=== PATIENT | female | born 1975 | race Caucasian/White ===

== ENCOUNTER 2017-02-27 06:35 | Inpatient (IN) | payer BC ==
[2017-02-27] VITALS (353 sets, daily range): BP systolic 94–111; BP diastolic 44–69; PULSE 112–124; TEMP 99.6–100.2; O2SAT 55–100
[~2017-02-27] VITALS: Ht 157.5 cm; Wt 105.9 kg
[~2017-02-27 06:35] MED LIST: ATIVAN 0.50.5 MG/TAB PO; CELEXA 20MG20 MG/TAB PO; CLEOCIN HC150 MG/CAP PO; FARXIGA5 PO; FORT1000TA PO; NORCO 325 MG-51 TAB PO; PRILOSEC 20MG20 MG PO; PRINZIDE 12.5 M1 TAB PO; ZYRTEC 10MG10 MG PO
[2017-02-27] MEDS ORDERED: PROTONIX 40MG T40 MG PO (06:58)
[2017-02-27] MEDS ORDERED: WOMEN'S DAILY1 TAB PO (06:59)
[2017-02-27] MEDS ORDERED: KLONOPIN 1MG1 MG PO (06:59)
[2017-02-27] MEDS ORDERED: EFFEXOR XR75 MG/CAP PO (06:59)
[2017-02-27 08:19] LABS: MEAN CELL VOLUME 85 fl (80.0-100.0); MEAN CORPUSCULAR HGB CONC 32 g/dl (33.0-37.0); MEAN PLATELET VOLUME 10.8 fl (7.4-10.4); PLATELET COUNT 383 K/mm3 (130-400); RED BLOOD COUNT 3.86 M/mm3 (4.10-5.30); REDCELL DISTRIBUTION WIDTH-CV 14.7 % (11.5-14.5)
[2017-02-27 08:29] LABS: ADD PATHOLOGY DIFF REVIEW NO; HEMATOCRIT 32.7 % (37.0-47.0); HEMOGLOBIN 10.6 g/dl (12.5-16.0); MEAN CORPUSCULAR HEMOGLOBIN 27 pg (27.0-31.0)
[2017-02-27 08:47] LABS: ADJUSTED CALCIUM 8.2 mg/dL (8.4-10.2); ALBUMIN 3.4 gm/dL (3.5-5.0); BILIRUBIN,TOTAL 0.7 mg/dL (0.0-1.0); CALCIUM 7.7 mg/dL (8.4-10.2); CREATININE, serum 2.09 mg/dL (0.52-1.25); POTASSIUM 3.6 mmol/L (3.4-5.0); TOTAL PROTEIN 6.5 gm/dL (6.4-8.2)
[2017-02-27 08:50] LABS: PH 5 (5-8); URINE APPEARANCE Cloudy; URINE BACTERIA Rare /hpf; URINE BILIRUBIN Negative (NEGATIVE); URINE BLOOD Negative (NEGATIVE); URINE COLOR Amber; URINE GLUCOSE Negative (NEGATIVE); URINE KETONE Trace (NEGATIVE); URINE UROBILINOGEN Negative (NEGATIVE)
[2017-02-27 08:57] LABS: INFLUENZA B NEGATIVE
[2017-02-27 10:14] LABS: ANISOCYTOSIS 1+; BAND 41 % (0-10); NEUTROPHILS 55 % (42.0-75.2); PLATELET ESTIMATE NORMAL (NORMAL); TOTAL CELLS COUNTED 100
[2017-02-27] MEDS ORDERED: TRULICITY1.5 MG/0.5 SQ (15:45)
[2017-02-28] VITALS (696 sets, daily range): BP systolic 92–103; BP diastolic 54–75; PULSE 92–108; TEMP 98.8–100.1; O2SAT 57–100
[2017-02-28 05:30] LABS: MEAN CELL VOLUME 83 fl (80.0-100.0); MEAN CORPUSCULAR HGB CONC 32 g/dl (33.0-37.0); MEAN PLATELET VOLUME 10.6 fl (7.4-10.4); PLATELET COUNT 367 K/mm3 (130-400); RED BLOOD COUNT 3.53 M/mm3 (4.10-5.30); REDCELL DISTRIBUTION WIDTH-CV 15.1 % (11.5-14.5)
[2017-02-28 05:35] LABS: HEMATOCRIT 29.3 % (37.0-47.0); HEMOGLOBIN 9.4 g/dl (12.5-16.0); MEAN CORPUSCULAR HEMOGLOBIN 27 pg (27.0-31.0); WHITE BLOOD COUNT 27.6 K/mm3 (4.8-10.8)
[2017-02-28 05:36] LABS: ADD PATHOLOGY DIFF REVIEW NO
[2017-02-28 05:43] LABS: CALCIUM 6.7 mg/dL (8.4-10.2); CREATININE, serum 1.93 mg/dL (0.52-1.25); POTASSIUM 3.5 mmol/L (3.4-5.0)
[2017-02-28 05:52] LABS: BAND 19 % (0-10); MYELOCYTE 1 % (0-0); NEUTROPHILS 66 % (42.0-75.2); PLATELET ESTIMATE NORMAL (NORMAL); TOTAL CELLS COUNTED 100
[2017-03-01 00:40] VITALS: BP 90/56; PULSE 101; TEMP 98.8
[2017-03-01 03:29] VITALS: BP 117/64; PULSE 98; TEMP 98.8
[2017-03-01 08:40] VITALS: BP 123/79; PULSE 98; TEMP 98.4
[2017-03-01 12:01] VITALS: BP 137/77; PULSE 88; TEMP 98.6
[2017-03-01 12:05] LABS: CALCIUM 7.5 mg/dL (8.4-10.2); CREATININE, serum 0.79 mg/dL (0.52-1.25); POTASSIUM 3.2 mmol/L (3.4-5.0)
[2017-03-01 12:13] LABS: MEAN CELL VOLUME 82 fl (80.0-100.0); MEAN CORPUSCULAR HGB CONC 33 g/dl (33.0-37.0); MEAN PLATELET VOLUME 10.5 fl (7.4-10.4); PLATELET COUNT 370 K/mm3 (130-400); RED BLOOD COUNT 3.27 M/mm3 (4.10-5.30); REDCELL DISTRIBUTION WIDTH-CV 15.3 % (11.5-14.5); WHITE BLOOD COUNT 16.2 K/mm3 (4.8-10.8)
[2017-03-01 12:15] LABS: HEMATOCRIT 26.9 % (37.0-47.0); HEMOGLOBIN 8.8 g/dl (12.5-16.0); MEAN CORPUSCULAR HEMOGLOBIN 27 pg (27.0-31.0)
[2017-03-01] MEDS ORDERED: CEFTIN500 MG PO (14:54)
[2017-03-01] MEDS ORDERED: ZOFRAN8 MG PO (21:25)
[2017-03-01] MEDS ORDERED: ULTRAM 50MG TAB50 MG PO (21:25)
== END 2017-03-01 15:50 | disposition home or self-care (01) | DRG 193 ==
LOC: COL.ER 06:35 → IMCU 08:14 → MEDICAL 02-28 22:32
PROVIDERS: Emergency Medicine; Internal Medicine Cardiovascular Disease
PROC: 02HV33Z Insertion of Infusion Device into Superior Vena Cava, Percutaneous Approach (ICD-10-PCS; principal; 2017-02-27)
DX: J13 Pneumonia due to Streptococcus pneumoniae (principal); J96.01 Acute respiratory failure with hypoxia; R04.2 Hemoptysis; Z68.41 Body mass index [BMI] 40.0-44.9, adult; N17.9 Acute kidney failure, unspecified; I10 Essential (primary) hypertension; Z79.4 Long term (current) use of insulin; E66.9 Obesity, unspecified; Z87.891 Personal history of nicotine dependence; D64.9 Anemia, unspecified; E11.65 Type 2 diabetes mellitus with hyperglycemia
CPT/HCPCS: 99222-AI; 99223-AI; 99232-AI; 99233-AI; A4315; C1751; J0692; J1644; J3370; J7030; J7050

== ENCOUNTER 2017-03-01 18:42 | Emergency (ER) | payer BC ==
[~2017-03-01] VITALS: Ht 157.5 cm; Wt 99.1 kg
[~2017-03-01 18:42] MED LIST changes: +CEFTIN500 MG PO; +EFFEXOR XR75 MG/CAP PO; +KLONOPIN 1MG1 MG PO; +PROTONIX 40MG T40 MG PO; +TRULICITY1.5 MG/0.5 SQ; +WOMEN'S DAILY1 TAB PO
[2017-03-01 18:54] VITALS: TEMP 98.9
[2017-03-01 19:47] LABS: BASO # 0.1 (0.0-0.2); BASO % 0.5 % (0.0-2.0); EOS # 0.2 (0.0-0.7); EOS % 1.2 % (0-4.0); GRAN # 11.1 (1.4-6.5); GRAN % 80.2 % (42.2-75.2); LYMPH # 1.6 (1.2-3.4); LYMPH % 11.5 % (20.0-51.0); MEAN CELL VOLUME 81 fl (80.0-100.0); MEAN CORPUSCULAR HGB CONC 32 g/dl (33.0-37.0); MEAN PLATELET VOLUME 10.3 fl (7.4-10.4); MONO # 0.8 (0.1-0.6); MONO % 5.7 % (1.7-9.3); PLATELET COUNT 395 K/mm3 (130-400); RED BLOOD COUNT 3.41 M/mm3 (4.10-5.30); REDCELL DISTRIBUTION WIDTH-CV 15.2 % (11.5-14.5); WHITE BLOOD COUNT 13.9 K/mm3 (4.8-10.8)
[2017-03-01 19:48] LABS: HEMATOCRIT 27.6 % (37.0-47.0); HEMOGLOBIN 8.9 g/dl (12.5-16.0); MEAN CORPUSCULAR HEMOGLOBIN 26 pg (27.0-31.0)
[2017-03-01 19:57] LABS: ADJUSTED CALCIUM 8.9 mg/dL (8.4-10.2); BILIRUBIN,TOTAL 0.5 mg/dL (0.0-1.0); CALCIUM 8.1 mg/dL (8.4-10.2); CREATININE, serum 0.77 mg/dL (0.52-1.25); TOTAL PROTEIN 6.4 gm/dL (6.4-8.2)
[2017-03-01 20:15] LABS: PH 5 (5-8); SQUAMOUS EPITHELIAL None Seen /hpf; URINE APPEARANCE Clear; URINE BACTERIA None Seen /hpf; URINE BILIRUBIN Negative (NEGATIVE); URINE BLOOD 1+ (NEGATIVE); URINE COLOR Straw; URINE GLUCOSE Negative (NEGATIVE); URINE KETONE Trace (NEGATIVE); URINE RBC 0-2 /hpf; URINE UROBILINOGEN Negative (NEGATIVE); URINE WBC 0-2 /hpf
[2017-03-01] MEDS ORDERED: ZOFRAN8 MG PO (21:25)
[2017-03-01] MEDS ORDERED: ULTRAM 50MG TAB50 MG PO (21:25)
[2017-03-01 21:29] VITALS: BP 140/84; PULSE 93
== END 2017-03-01 21:52 | disposition home or self-care (01) ==
LOC: COL.ER 18:42
PROVIDERS: Emergency Medicine
DX: R10.11 Right upper quadrant pain (principal); R10.13 Epigastric pain; E86.9 Volume depletion, unspecified; R11.10 Vomiting, unspecified; J90 Pleural effusion, not elsewhere classified; J18.9 Pneumonia, unspecified organism; E11.9 Type 2 diabetes mellitus without complications; K21.9 Gastro-esophageal reflux disease without esophagitis; F32.9 Major depressive disorder, single episode, unspecified; F17.210 Nicotine dependence, cigarettes, uncomplicated; Z79.84 Long term (current) use of oral hypoglycemic drugs
CPT/HCPCS: J0696; J1170; J1885; J2405; J7030; Q9967